=== PATIENT | female | born 1975 | race Caucasian/White ===

== ENCOUNTER → 2018-01-28 11:34 | Outpatient (CLI) | payer OTHER, SELFPAY ==
[2018-01-28 14:10] LABS: Erythrocyte Sedimentation Rate 3 mm/hr (0-20)
[2018-01-28 14:29] LABS: ALB/GLOB Ratio 0.9 RATIO (0.9-2.4); AST(SGOT) 13 U/L (15-37); Alanine Aminotransfer ALT/SGPT 21 U/L (13-56); Albumin, Serum 3.5 g/dL (3.2-5.0); Alkaline Phosphatase 71 U/L (45-117); Anion Gap 7 (5-15); BUN 22 mg/dL (7-18); BUN/Creat Ratio 32.9 RATIO (10-20); CRP < 2.90 mg/L (0.0-3.0); Calcium,Total 8.8 mg/dL (8.5-10.1); Chloride 104 mmol/L (98-107); Creatinine, Serum 0.67 mg/dL (0.55-1.02); EST Glomerular Filtration Rate 103 mL/min (>60); Est Glom Filt Rate - Afr Amer 125 mL/min (>60); Globulin 3.7 g/dL (2.2-4.2); Glucose 68 mg/dL (74-106); Potassium 3.9 mmol/L (3.5-5.1); Protein, Total 7.2 g/dL (6.4-8.2); Sodium Level 139 mmol/L (136-145); Thyroid Stim Hormone (TSH) 0.84 uIU/mL (0.358-3.74)
[2018-01-29 09:23] LABS: PTHIN 25.4 pg/mL (18.4-80.1)
[2018-01-31 20:07] LABS: Lyme IgG P18 Ab Absent (.); Lyme IgG P23 Ab Absent (.); Lyme IgG P28 Ab Absent (.); Lyme IgG P30 Ab Absent (.); Lyme IgG P39 Ab Absent (.); Lyme IgG P41 Ab Present (.); Lyme IgG P45 Ab Absent (.); Lyme IgG P58 Ab Absent (.); Lyme IgG P66 Ab Absent (.); Lyme IgG P93 Ab Absent (.); Lyme IgM P23 Ab Absent (.); Lyme IgM P39 Ab Absent (.); Lyme IgM P41 Ab Absent (.)
[2018-02-01 10:51] LABS: Lyme IgG WB Interpretation Negative (.); Lyme IgM WB Interpretation Negative (.)
== END ==
PROVIDERS: Family Provider Nurse Practitioner Family; PCP Nurse Practitioner Family; Visit Provider Nurse Practitioner Family
DX: M25.50 Pain in unspecified joint (principal); G89.29 Other chronic pain; L74.9 Eccrine sweat disorder, unspecified; M79.1 Myalgia; R53.81 Other malaise; R53.82 Chronic fatigue, unspecified
CPT/HCPCS: 36415; 80053; 82533; 83970; 84443; 85652; 86140; 86617

== ENCOUNTER → 2018-05-06 16:58 | Outpatient (CLI) | payer OTHER, SELFPAY ==
[2018-05-10 09:01] LABS: HPV Reflexed? NOT INDICATED
== END ==
PROVIDERS: Visit Provider Obstetrics & Gynecology
DX: Z12.4 Encounter for screening for malignant neoplasm of cervix (principal)
CPT/HCPCS: 88175; G0145

== ENCOUNTER → 2018-06-10 16:24 | Outpatient (CLI) | payer OTHER, SELFPAY ==
--- NOTE | 2018-06-10 16:27 | BI_ITS ---
MAMMOGRAPHY - BILATERAL SCREENING REASON FOR EXAM: Female, 42 years old. Routine annual screening examination. PERTINENT HISTORY: Grandmother with breast cancer. Remote left excisional breast biopsy and right excisional breast biopsy. TECHNIQUE: Digital bilateral breast jessica (3D mammographic acquisition) in the CC and MLO projections. 2-D mediolateral oblique (MLO) and craniocaudad (CC) views of both breasts were obtained. CAD: Full Field Digital Mammography with Computer Added Detection was performed. COMPARISON: Comparison is made with prior study dated January 29, 2017. FINDINGS: Breast Composition: The breasts are extremely dense, which lowers the sensitivity of mammography. There are no dominant masses or suspicious calcifications. A tissue clip marker is seen in the anterior superior aspect of the left breast. The previously seen microcalcifications are not seen at this time. No other significant abnormalities are identified. BI/SCREENING MAMM (CAD), BILAT IMPRESSION: Stable bilateral screening mammogram. Yearly follow-up mammogram recommended. (A) ASSESSMENT CATEGORY: BIRADS Category 2: Benign. A letter regarding these results will be sent to the patient by the facility within 30 days. Approximately 10% of breast cancers are not detected by mammography. A normal mammogram should not delay biopsy of a clinically suspicious abnormality. [id number] Electronically Signed: Hunter Perez MD at 8:28 EDT Tel [phone], Service support ,
== END ==
PROVIDERS: Family Provider Nurse Practitioner Family; PCP Nurse Practitioner Family; Visit Provider Obstetrics & Gynecology
DX: Z12.31 Encounter for screening mammogram for malignant neoplasm of breast (principal)
CPT/HCPCS: 77063; 77067

== ENCOUNTER → 2019-05-29 | Outpatient (CLI) | payer OTHER, SELFPAY ==
[2019-04-02 12:24] VITALS: BMI 19.6
[2019-05-29 10:28] LABS: Absolute Neutrophil Count 3.6 X10^3/uL (2.0-7.7); Basophil# 0.05 X10^3/uL; Basophil% 0.8 % (0-1); Eosinophil# 0.11 X10^3/uL; Eosinophils% 1.8 % (0-5); Hematocrit 37.6 % (37-47); Hemoglobin 12.1 g/dL (12.0-15.0); Lymphocyte % 30.8 % (19-41); Mean Corp Hgb Conc 32.2 g/dL (32-36); Mean Corpuscular Hgb 30.4 pg (27.0-32.0); Mean Corpuscular Volume 94.5 fL (81-99); Mean Platelet Vol. 11.6 fl (6.2-12.0); Monocyte# 0.54 X10^3/uL; Monocyte% 8.8 % (0-10); NRBC Flagged by Analyzer 0 % (0-5); Neutrophil # 3.55 X10^3/uL (2.7-7.7); Neutrophil % 57.5 % (47-70); Platelet Count 308 K/mm3 (150-450); RBC Distribution Width CV 12.5 % (11.6-14.6); RBC Distribution Width SD 43.2 fl (35.1-43.9); Red Blood Count 3.98 M/mm3 (4.2-5.4); White Blood Count 6.2 K/mm3 (4.4-11.0)
[2019-05-29 11:21] LABS: ALB/GLOB Ratio 0.9 RATIO (0.9-2.4); AST(SGOT) 15 U/L (15-37); Alanine Aminotransfer ALT/SGPT 21 U/L (13-56); Albumin, Serum 3.3 g/dL (3.2-5.0); Alkaline Phosphatase 69 U/L (45-117); Anion Gap 1 (5-15); BUN 15 mg/dL (7-18); BUN/Creat Ratio 19.1 RATIO (10-20); Calcium,Total 8.8 mg/dL (8.5-10.1); Chloride 105 mmol/L (98-107); Creatinine, Serum 0.79 mg/dL (0.55-1.02); EST Glomerular Filtration Rate 85 mL/min (>60); Est Glom Filt Rate - Afr Amer 103 mL/min (>60); Ferritin 12 ng/mL (8-252); Follicle Stimulating Hormone 12.6 mIU/mL; Free T3 2.4 pg/mL (2.18-3.98); Globulin 3.7 g/dL (2.2-4.2); Glucose 72 mg/dL (74-106); Iron 35 ug/dL (50-170); Iron Binding Capacity,Total 336 ug/dL (250-450); LDH 127 U/L (84-246); Luteinizing Hormone 19.5 mIU/mL; PERCENT IRON SATURATION 10.4 % (15.0-55.0); Sodium Level 138 mmol/L (136-145); T4 Free Direct 0.87 ng/dL (0.76-1.46); Thyroid Stim Hormone (TSH) 1.04 uIU/mL (0.358-3.74)
[2019-05-29 12:18] LABS: Vitamin D,25 Hydroxy 51.4 ng/mL (29.95-100.01)
[2019-06-03 13:03] LABS: Adrenocorticotropic Hormone 9.7 pg/mL (7.2-63.3); Estrogen, Total, Serum 270 pg/mL (.)
== END | disposition home or self-care (01) ==
LOC: MTLAB 08:47
PROVIDERS: Family Provider Nurse Practitioner Family; PCP Nurse Practitioner Family; Referring Provider Internal Medicine Endocrinology, Diabetes & Metabolism; Visit Provider Internal Medicine Endocrinology, Diabetes & Metabolism
DX: R61 Generalized hyperhidrosis (principal); R53.83 Other fatigue; E55.9 Vitamin D deficiency, unspecified
CPT/HCPCS: 36415; 80053; 82024; 82306; 82533; 82672; 82728; 83001; 83002; 83540; 83550; 83615; 84439; 84443; 84481; 85025

== ENCOUNTER → 2019-07-02 | Outpatient (CLI) | payer OTHER, SELFPAY ==
[2019-04-02 12:24] VITALS: BMI 19.6
--- NOTE | 2019-07-02 12:14 | BI_ITS ---
MAMMOGRAPHY - BILATERAL SCREENING REASON FOR EXAM: Female, 43 years old. Routine annual screening examination. PERTINENT HISTORY: Grandmother with breast cancer. Aunt with breast cancer. Prior left stereotactic biopsy and right excisional breast biopsy. TECHNIQUE: Digital bilateral breast nazia (3D mammographic acquisition) in the CC and MLO projections. 2-D mediolateral oblique (MLO) and craniocaudad (CC) views of both breasts were obtained. CAD: Full Field Digital Mammography with Computer Added Detection was performed. COMPARISON: Comparison is made with prior study June 10, 2018 and January 29, 2017. FINDINGS: Breast Composition: The breasts are extremely dense, which lowers the sensitivity of mammography. There are no dominant masses or suspicious calcifications. A tissue clip marker is once again seen in the anterior upper lateral aspect of the left breast. No other significant abnormalities are identified. There has been no significant change since the prior study. BI/SCREEN MAMM (CAD) W/NAZIA BILAT IMPRESSION: Stable bilateral screening mammogram. Yearly follow-up mammogram recommended. (A) ASSESSMENT CATEGORY: BIRADS Category 2: Benign. A letter regarding these results will be sent to the patient by the facility within 30 days. Approximately 10% of breast cancers are not detected by mammography. A normal mammogram should not delay biopsy of a clinically suspicious abnormality. [id number] Electronically Signed: Hunter Perez, at 13:49 EDT , Service support ,
== END | disposition home or self-care (01) ==
LOC: OPBI 12:13
PROVIDERS: Family Provider Nurse Practitioner Family; PCP Nurse Practitioner Family; Referring Provider Obstetrics & Gynecology; Visit Provider Obstetrics & Gynecology
DX: Z12.31 Encounter for screening mammogram for malignant neoplasm of breast (principal)
CPT/HCPCS: 77063; 77067

== ENCOUNTER → 2020-07-26 16:22 | Outpatient (CLI) | payer OTHER, SELFPAY ==
[2019-11-20 15:39] VITALS: BMI 19.6
--- NOTE | 2020-07-26 16:23 | BI_ITS ---
MAMMOGRAPHY - BILATERAL SCREENING REASON FOR EXAM: Female, 44 years old. Routine annual screening examination. PERTINENT HISTORY: Grandmother with breast cancer. Aunt with breast cancer. History of prior left stereotactic breast biopsy. TECHNIQUE: Digital bilateral breast nazia (3D mammographic acquisition) in the CC and MLO projections. 2-D mediolateral oblique (MLO) and craniocaudad (CC) views of both breasts were obtained. CAD: Full Field Digital Mammography with Computer Added Detection was performed. COMPARISON: Comparison is made with prior study dated 07/02/2019 and 06/10/2018. FINDINGS: Breast Composition: The breasts are extremely dense, which lowers the sensitivity of mammography. There are no dominant masses or suspicious calcifications. A tissue clip marker is once again seen in the anterior upper lateral aspect of the left breast. No other significant abnormalities are identified. There has been no significant change since the prior study. BI/SCREEN MAMM (CAD) W/NAZIA BILAT IMPRESSION: Stable bilateral screening mammogram. Yearly follow-up mammogram recommended. (A) ASSESSMENT CATEGORY: BIRADS Category 2: Benign. A letter regarding these results will be sent to the patient by the facility within 30 days. Approximately 10% of breast cancers are not detected by mammography. A normal mammogram should not delay biopsy of a clinically suspicious abnormality. [id number] Electronically Signed: Hunter Perez, at 8:08 EST , Service support ,
== END ==
PROVIDERS: PCP Nurse Practitioner Family; Referring Provider Nurse Practitioner Family; Visit Provider Nurse Practitioner Family
DX: Z12.31 Encounter for screening mammogram for malignant neoplasm of breast (principal)
CPT/HCPCS: 77063; 77067

== ENCOUNTER → 2020-12-15 13:26 | Outpatient (CLI) | payer BC, SELFPAY ==
[2019-11-20 15:39] VITALS: BMI 19.6
[2020-12-20 20:07] LABS: HPV Genotype 16, Aptima Negative (Negative)
[2020-12-20 20:31] LABS: HPV APTIMA, High Risk Positive (Negative); HPV Genotype 18,45 Aptima Negative (Negative)
== END ==
PROVIDERS: PCP Nurse Practitioner Family; Visit Provider Student in an Organized Health Care Education/Training Program
DX: Z12.4 Encounter for screening for malignant neoplasm of cervix (principal)
CPT/HCPCS: 87624; 88175; G0145

== ENCOUNTER → 2021-02-28 09:59 | Outpatient (CLI) | payer BC, SELFPAY ==
[2019-11-20 15:39] VITALS: BMI 19.6
--- NOTE | 2021-02-28 10:06 | US_ITS ---
STUDY: THYROID ULTRASOUND REASON FOR EXAM: Female, 45 years old. THYROID NODULE TECHNIQUE: Ultrasound evaluation of the thyroid was performed with real-time and static dwyer-scale imaging. COMPARISON: None. FINDINGS: RIGHT LOBE: The right lobe of the thyroid gland is enlarged and measures 5.2 cm x 2.1 signed by 1.5 cm. There is a homogeneous echotexture. A dominant nodule is in the upper pole measuring 1.5 cm x 1 cm x 0.8 cm. Biopsy is recommended. This also evidence of a solid and cystic nodule in the midpole measuring 8 mm x 7 mm x 4 mm. A similar-appearing nodule in the lower pole measures 6 mm x 5 mm x 4 mm. LEFT LOBE: The left lobe of the thyroid gland is enlarged and measures 5.2 cm x 1.7 cm x 2 cm. There is a homogeneous echotexture. A dominant solid nodule in the lower pole is seen. It measures 2.2 cm x 1.6 x 1.5 cm. Biopsy is recommended. ISTHMUS: The isthmus measures 3 mm. The regional lymph nodes are normal. US/Thyroid IMPRESSION: Enlargement of the thyroid gland with the bilateral nodules. A dominant nodule is seen in the left lobe of the thyroid and measures 2.2 cm x 1.6 cm by 1.5 cm. A biopsy is recommended. Electronically Signed: Hunter Perez MD at 15:28 EDT , Service support ,
[2021-02-28 10:46] LABS: T4 Free Direct 1.11 ng/dL (0.76-1.46); Thyroid Stim Hormone (TSH) 1.21 uIU/mL (0.358-3.74)
== END ==
PROVIDERS: PCP Nurse Practitioner Family; Referring Provider Nurse Practitioner Family; Visit Provider Nurse Practitioner Family
DX: E04.1 Nontoxic single thyroid nodule (principal)
CPT/HCPCS: 36415; 76536; 84439; 84443

== ENCOUNTER → 2021-03-28 09:32 | Outpatient (CLI) | payer BC, SELFPAY ==
[2019-11-20 15:39] VITALS: BMI 19.6
[2021-03-29 16:09] LABS: Thyroid Peroxidase AB < 8 IU/mL (0-34)
[2021-03-30 16:21] LABS: Thyroglobulin Antibody < 1.0 IU/mL (0.0-0.9)
== END ==
PROVIDERS: PCP Nurse Practitioner Family; Referring Provider Nurse Practitioner Family; Visit Provider Nurse Practitioner Family
DX: E04.1 Nontoxic single thyroid nodule (principal)
CPT/HCPCS: 36415; 86376; 86800

== ENCOUNTER → 2021-04-25 08:04 | Outpatient (CLI) | payer BC, SELFPAY ==
[2019-11-20 15:39] VITALS: BMI 19.6
--- NOTE | 2021-04-25 08:07 | NM_ITS ---
CLINICAL: 45-year-old female with reported history of thyroid nodularity. I-123 THYROID UPTAKE and SCAN COMPARISON: Thyroid ultrasound report 02/28/2021 FINDINGS: The patient was administered a 324 uCi I-123 capsule by mouth. The 4-hour I-123 radioactive iodine thyroidal uptake was calculated to be 29.8 % (normal 5 to 25 %). The 24-hour I-123 radioactive iodine thyroidal uptake was calculated to be 46.6 % (normal 5 to 40 %). The I-123 thyroid scan demonstrates homogeneous radiopharmaceutical concentration throughout both lobes of a U -shaped thyroid gland. There are no colloidal parenchymal hypofunctioning-cold nodules noted in either lobe of the thyroid gland. NM/Thyroid Uptake Single or Mult IMPRESSION: 1. ABNORMAL, ELEVATED 4- and 24-hour I-123 radioactive iodine thyroidal uptakes. 2. The I-123 thyroid scan in conjunction with the calculated iodine uptake values is most consistent with the presence of a diffuse toxic goiter. If not previously obtained correlation with in-vitro thyroid function studies is recommended. 3. Meticulous attention paid to the right-left thyroid colloid demonstrate no evidence of hypofunctioning-cold nodules as described above. Electronically Signed: Toni Andrade DO at 21:58 EDT Tel , Service support ,
== END ==
LOC: NM 08:05
PROVIDERS: PCP Nurse Practitioner Family; Referring Provider Nurse Practitioner Family; Visit Provider Nurse Practitioner Family
DX: E04.1 Nontoxic single thyroid nodule (principal)
CPT/HCPCS: 78012; A9516

== ENCOUNTER → 2021-05-23 18:21 | Outpatient (CLI) | payer BC, SELFPAY ==
--- NOTE | 2021-05-23 13:00 | ASPS_PTH ---
PATIENT: LIDIA AGGARAWL [facility] U#:[id number] AGE/SX: 49/F ROOM: RE05/23/[address]: Dr. Milind Cloud MD : 1975 BED: DIS: SPEC #: [id number] RECD: 05/24/21 07:55 STATUS: ELIGIO JAYY #: [id number] RYLAN: 05/23/21 13:[address]: Milind Cloud DEPT: CYTOLOGY RECD BY: Rubina Friedman ENTERED: 05/24/21 07:56 SP TYPE: ASPIRATION OTHR DR: Toni Barreto, DIRECTOR OF PRIMARY CARE-C Tissues: Thyroid gland, NOS Procedures: Special Stain Group II Cytology Other HEADER OPERATION: Ultrasound guided fine needle aspiration of left thyroid PRE-OP DIAGNOSIS: Thyroid nodule, left TISSUE SUBMITTED: FNA left thyroid DIAGNOSIS CYTOLOGY Fine needle aspiration, left thyroid (smears): -Adequate for evaluation -Negative, consistent with benign follicular nodule with cystic change AM:mary 05/24/21 COMMENT Immediate cytologic evaluation to determine adequacy is not applicable. CYTOLOGY STUDY Slides are reviewed. CYTOLOGY GROSS Received are 12 smears labeled with the patient's name and designated per the requisition as left thyroid Submitted for staining. /AM:mary 05/24/21 TC:5 CPT: 87286
== END ==
PROVIDERS: PCP Nurse Practitioner Family; Visit Provider Surgery
DX: E04.1 Nontoxic single thyroid nodule (principal)
CPT/HCPCS: 88161; 88313

== ENCOUNTER → 2021-07-18 08:10 | Outpatient (CLI) | payer BC, SELFPAY ==
[2021-07-18 09:45] LABS: Absolute Lymphocyte Count 1.79 X10^3/uL (0.83-4.51); Absolute Neutrophil Count 5.8 X10^3/uL (2.0-7.7); Basophil# 0.09 X10^3/uL; Basophil% 1.1 % (0-1); Eosinophil# 0.23 X10^3/uL; Eosinophils% 2.7 % (0-5); Hematocrit 41.8 % (37-47); Hemoglobin 13.8 g/dL (12.0-15.0); Lymphocyte # 1.79 X10^3/ul (0.83-4.51); Lymphocyte % 21.1 % (19-41); Mean Corpuscular Volume 93.9 fL (81-99); Mean Platelet Vol. 10.8 fl (6.2-12.0); Monocyte# 0.55 X10^3/uL; Monocyte% 6.5 % (0-10); NRBC Flagged by Analyzer 0 % (0-5); Neutrophil # 5.82 X10^3/uL (2.7-7.7); Neutrophil % 68.4 % (47-70); Platelet Count 373 K/mm3 (150-450); RBC Distribution Width CV 12.4 % (11.6-14.6); RBC Distribution Width SD 42.6 fl (35.1-43.9); Red Blood Count 4.45 M/mm3 (4.2-5.4); White Blood Count 8.5 K/mm3 (4.4-11.0)
[2021-07-18 10:08] LABS: Vitamin D,25 Hydroxy 90.6 ng/mL
[2021-07-18 10:09] LABS: Cholesterol 170 mg/dL (200); High Density Lipoprotein 48 mg/dL; Iron 78 ug/dL (50-170); Triglycerides 115 mg/dL; Very Low Density Lipoprotein 23 mg/dL (5-40)
== END ==
PROVIDERS: PCP Nurse Practitioner Family; Referring Provider Nurse Practitioner Family; Visit Provider Nurse Practitioner Family
DX: D64.9 Anemia, unspecified (principal); E55.9 Vitamin D deficiency, unspecified; Z13.220 Encounter for screening for lipoid disorders
CPT/HCPCS: 36415; 80061; 82306; 83540; 85025

== ENCOUNTER → 2021-08-08 12:36 | Outpatient (CLI) | payer BC, SELFPAY ==
--- NOTE | 2021-08-08 12:49 | BI_ITS ---
MAMMOGRAPHY - BILATERAL SCREENING 3-D TOMOSYNTHESIS REASON FOR EXAM: Female, 45 years old. SCREENING PERTINENT HISTORY: Grandmother, and aunt with breast cancer TECHNIQUE: 2-D mammograms and 3-D Tomosynthesis of the breast (s) were performed. CAD was performed. COMPARISON: 07/26/2020 FINDINGS: The breast composition is extremely dense tissue Scattered benign calcifications are seen. No dense spiculated masses or suspicious microcalcifications are identified. No architectural distortion is identified. There is no skin thickening or retraction. There has been no significant change since the prior study. BI/SCRN MAMM (CAD)W/NAZIA BILAT IMPRESSION: No mammographic signs of malignancy. Routine yearly mammograms recommended. ASSESSMENT CATEGORY: BIRADS Category 2: Benign. A letter regarding these results will be sent to the patient by the facility within 30 days. FOLLOW UP RECOMMENDATION: Yearly follow up mammogram recommended. (A) Approximately 10% of breast cancers are not detected by mammography. A normal mammogram should not delay biopsy of a clinically suspicious abnormality. Electronically Signed: Puneet Arshad MD at 14:22 EST , Service support ,
== END ==
PROVIDERS: PCP Nurse Practitioner Family; Referring Provider Nurse Practitioner Family; Visit Provider Nurse Practitioner Family
DX: Z12.31 Encounter for screening mammogram for malignant neoplasm of breast (principal)
CPT/HCPCS: 77063; 77067

== ENCOUNTER → 2021-09-06 20:59 | Outpatient (CLI) | payer BC, SELFPAY | PROVIDERS: PCP Nurse Practitioner Family; Referring Provider Physician Assistant; Visit Provider Physician Assistant | DX: J02.9 Acute pharyngitis, unspecified (principal) | CPT/HCPCS: 87070 ==

== ENCOUNTER → 2022-08-14 | Outpatient (CLI) | payer OTHER, SELFPAY ==
--- NOTE | 2022-08-14 16:49 | BI_ITS ---
MAMMOGRAPHY - BILATERAL SCREENING REASON FOR EXAM: Female, 46 years old. Routine annual screening examination. PERTINENT HISTORY: Grandmother with breast cancer. Aunt with breast cancer. Prior bilateral excisional breast biopsies and left stereotactic breast biopsy. TECHNIQUE: Digital bilateral breast nzaia (3D mammographic acquisition) in the CC and MLO projections. 2-D mediolateral oblique (MLO) and craniocaudad (CC) views of both breasts were obtained. CAD: Full Field Digital Mammography with Computer Added Detection was performed. COMPARISON: Comparison is made with prior study dated 08/08/2021 and 07/26/2020. FINDINGS: Breast Composition: The breasts are extremely dense, which lowers the sensitivity of mammography. There are no dominant masses or suspicious calcifications. No other significant abnormalities are identified. There has been no significant change since the prior study. BI/SCRN MAMM (CAD)W/NAZIA BILAT IMPRESSION: Stable bilateral screening mammogram. Yearly follow-up mammogram recommended. (A) ASSESSMENT CATEGORY: BIRADS Category 1: Negative. A letter regarding these results will be sent to the patient by the facility within 30 days. Approximately 10% of breast cancers are not detected by mammography. A normal mammogram should not delay biopsy of a clinically suspicious abnormality. [id number] Electronically Signed: Hunter Perez MD at 8:18 EST ,
== END | disposition home or self-care (01) ==
LOC: OPBI 08-15 06:52
PROVIDERS: PCP Nurse Practitioner Family; Visit Provider Student in an Organized Health Care Education/Training Program
DX: Z12.31 Encounter for screening mammogram for malignant neoplasm of breast (principal)
CPT/HCPCS: 77063; 77067

== ENCOUNTER → 2023-05-29 | Outpatient (CLI) | payer OTHER, SELFPAY ==
[2023-06-04 07:08] LABS: HPV APTIMA, High Risk Positive (Negative); HPV Genotype 16, Aptima Negative (Negative); HPV Genotype 18,45 Aptima Negative (Negative)
== END | disposition home or self-care (01) ==
LOC: WOBLAB 10:55
PROVIDERS: PCP Nurse Practitioner Family; Visit Provider Student in an Organized Health Care Education/Training Program
DX: Z12.4 Encounter for screening for malignant neoplasm of cervix (principal)
CPT/HCPCS: 87624; 88175; G0145

== ENCOUNTER → 2023-09-24 | Outpatient (CLI) | payer OTHER, SELFPAY ==
--- NOTE | 2023-09-24 16:29 | BI_ITS ---
MAMMOGRAPHY - BILATERAL SCREENING REASON FOR EXAM: Female, 47 years old. Routine annual screening examination. PERTINENT HISTORY: Grandmothers with breast cancer. Prior bilateral excisional breast biopsies and left stereotactic breast biopsy. TECHNIQUE: Digital bilateral breast nazia (3D mammographic acquisition) in the CC and MLO projections. 2-D mediolateral oblique (MLO) and craniocaudad (CC) views of both breasts were obtained. CAD: Full Field Digital Mammography with Computer Added Detection was performed. COMPARISON: Comparison is made with prior study dated August 14, 2022 and August 08, 2021. FINDINGS: Breast Composition: The breasts are extremely dense, which lowers the sensitivity of mammography. Stable 8.5 mm x 13.4 mm fat-containing nodular density in the superior retroareolar region of the right breast. A tissue clip marker is seen in the upper deep central portion of the left breast. No other significant abnormalities are identified. There has been no significant change since the prior study. BI/SCRN MAMM (CAD)W/NAZIA BILAT IMPRESSION: Stable bilateral screening mammogram. Yearly follow-up mammogram recommended. (A) ASSESSMENT CATEGORY: BIRADS Category 2: Benign. A letter regarding these results will be sent to the patient by the facility within 30 days. Approximately 10% of breast cancers are not detected by mammography. A normal mammogram should not delay biopsy of a clinically suspicious abnormality. [id number] Electronically Signed: Hunter Perez MD at 9:20 EST ,
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
== END | disposition home or self-care (01) ==
LOC: OPBI 09-25 07:44
PROVIDERS: PCP Nurse Practitioner Family; Referring Provider Nurse Practitioner Family; Visit Provider Nurse Practitioner Family
DX: Z12.31 Encounter for screening mammogram for malignant neoplasm of breast (principal)
CPT/HCPCS: 77063; 77067

== ENCOUNTER → 2024-08-18 | Outpatient (CLI) | payer OTHER, SELFPAY ==
[2024-08-31 09:22] LABS: HPV APTIMA, High Risk Positive (Negative); HPV Genotype 16, Aptima Negative (Negative); HPV Genotype 18,45 Aptima Negative (Negative)
== END | disposition home or self-care (01) ==
LOC: LABSPEC 16:34
PROVIDERS: PCP Nurse Practitioner Family; Referring Provider Nurse Practitioner Women's Health; Visit Provider Nurse Practitioner Women's Health
DX: Z12.4 Encounter for screening for malignant neoplasm of cervix (principal)
CPT/HCPCS: 87624; 88175; G0145

== ENCOUNTER → 2024-10-19 | Outpatient (CLI) | payer OTHER, SELFPAY ==
--- NOTE | 2024-10-19 | IMM_PTH ---
PATIENT: LIDIA AGGARWAL LOC: [facility] U#:[id number] AGE/SX: 48/F ROOM: RE10/19/[address]: Dr. Mery Munguia DO : 1975 BED: DIS: 10/19/2024 SPEC #: [id number] RECD: 10/21/24 12:00 STATUS: ELIGIO JAYY #: [id number] RYLAN: 10/19/24 00:[address]: Mery Munguia DEPT: IMMUNOHISTOCHEMISTRY RECD BY: Franklin Miller ENTERED: 10/21/24 12:00 SP TYPE: IMMUNO OTHR DR: Toni Barreto, HAZMAT TECHNICIAN-C Tissues: A - Uterine cervix, NOS Procedures: p16 (initial) KI-67 (add) PHYSICIAN & INSTITUTION [place] [id number] SPECIMEN INFORMATION: Tissue Source: A- 12o'clock Clinical Info: HPV+ Specimen Number: [id number] CPT code: 18539,27087 METHODOLOGY: Deparaffinized sections of prefer/formalin-fixed tissue or PAP/DQ stained slides are incubated with monoclonal/polyclonal antibodies/oligonucleotide probes. Localization is made via biotin free immunoperoxidase method. Appropriate controls are performed and reacted as expected. Results on target cell population are indicated in the following table: RESULTS: ANTIBODY / CLONE RESULT Block A P16 (E6H4) positive, focal patchy staining Ki-67 (30-9) positive, low These tests were developed and their performance characteristics determined by [facility]. They may not have been cleared or approved by the U.S. Food and Drug Administration. The FDA has determined that such clearance or approval is not necessary. The above immunohistochemical/dualISH markers are ordered and reviewed by the Pathologist. INTERPRETATION: A. Cervix, 12o'clock, biopsy: Focal changes consistent with HPV cytopathic effects. . mr 10/22/2024
--- NOTE | 2024-10-19 | CER_PTH ---
PATIENT: LIDIA AGGARWAL LOC: [facility]#:[id number] AGE/SX: 48/F ROOM: RE10/19/[address]: Dr. Mery Munguia DO : 1975 BED: DIS: 10/19/2024 SPEC #: [id number] RECD: 10/19/24 16:59 STATUS: ELIGIO GOODMANDelmi #: [id number] RYLAN: 10/19/24 00:[address]: Mery Munguia DEPT: SURGICAL PATHOLOGY RECD BY: Leonides Shepherd ENTERED: 10/20/24 08:55 SP TYPE: CERV OTHR DR: Toni Barreto, TRAINING PROFESSIONAL-C Tissues: A - Uterine cervix, NOS B - Endocervical Procedures: Surgery Specimen Level IV HEADER OPERATION: Colposcopy PRE-OP DIAGNOSIS: HPV+ TISSUE SUBMITTED: A- 12o'clock, B- Endocervical curettings MICROSCOPIC DIAGNOSIS A. Cervix, 12o'clock, biopsy: Focal changes consistent with HPV cytopathic effects. Acute and chronic inflammation and squamous metaplasia. See comment. B. Endocervical curettings: Scant fragments of benign ecto- and endocervical epithelium, negative for dysplasia. SJ. 10/21/2024 COMMENT A. Immunohistochemistry ([id number]) for surrogate HPV marker (p16) supports the above diagnosis. MICROSCOPIC DESCRIPTION Slides are reviewed. GROSS DESCRIPTION A. Received in fixative is one container labeled with the patient's name and designated 12o'clock. The specimen consists of one irregular fragment of light mcclendon soft tissue that measures 0.3 x 0.3 x 0.1 cm. The specimen is totally submitted in one cassette. B. Received in fixative is a metallic brush with adherent minute fragments of mcclendon-red tissue and labeled with the patient's name and and designated per the requisition as ECC BRUSH. The material is dislodged from the brush and submitted for cell block preparation in one cassette. ALEX. 10/20/2024 TC:5 CPT:77047d6
== END | disposition home or self-care (01) ==
LOC: LABSPEC 16:10
PROVIDERS: PCP Nurse Practitioner Family; Referring Provider Obstetrics & Gynecology; Visit Provider Obstetrics & Gynecology
DX: N87.9 Dysplasia of cervix uteri, unspecified (principal)
CPT/HCPCS: 88305; 88341; 88342

== ENCOUNTER → 2024-11-18 | Outpatient (CLI) | payer OTHER, SELFPAY ==
--- NOTE | 2024-11-18 09:45 | BI_ITS ---
PROCEDURE: SCRN MAMM (CAD)W/NAZIA BILAT REASON FOR EXAM: F, Age 49 y/o, presents for annual screening mammogram. Family history of breast cancer in her maternal grandmother, paternal grandmother, maternal aunt and paternal aunt. TECHNIQUE: Bilateral screening digital breast tomosynthesis with 2D and 3D images. Computer aided detection. COMPARISON: 09/24/2023, 08/14/2022 FINDINGS: The breasts are extremely dense which lowers the sensitivity of mammography. The mammogram demonstrates that the patient has dense breasts. Supplemental screening with whole breast ultrasound or MRI may be considered for further evaluation. No suspicious masses, areas of developing architectural distortion, or suspicious calcifications. BI/SCRN MAMM (CAD)W/NAZIA BILAT IMPRESSION: There is no mammographic evidence of malignancy. BI-RADS 1: NEGATIVE. RECOMMEND ANNUAL MAMMOGRAPHIC SCREENING. Follow-up code: Routine Follow-up The patient will be notified of the results by letter. Reading Location: [id number]
== END | disposition home or self-care (01) ==
LOC: OPBI 09:36
PROVIDERS: PCP Nurse Practitioner Family; Referring Provider Nurse Practitioner Women's Health; Visit Provider Nurse Practitioner Women's Health
DX: Z12.31 Encounter for screening mammogram for malignant neoplasm of breast (principal)
CPT/HCPCS: 77063; 77067

== ENCOUNTER 2024-11-23 06:50 | Day surgery (SDC) | payer OTHER, SELFPAY ==
[2024-11-23] VITALS (7 sets, daily range): BP systolic 88–107; BP diastolic 53–66; PULSE 51–60; RESP 16; TEMP 36.1–36.6; O2SAT 97–100; BMI 20.2
--- NOTE | 2024-11-23 07:06 | PCM.PRE.AN2 ---
ASA Classification* ASA Classification ASA Classification: 2 Assessment & Plan Anesthesia* Anesthesia Assessment Anesthesia Assessment: Discussed sedation and/or anesthesia options, risks, benefits, and alternatives with patient/parents/legal guardian/POA. Questions invited. The patient/parents/legal guardian/POA seems to understand and agrees to proceed with anesthesia plan. Reviewed the physical assessment, medical history, allergy history and patient home medications list prior to surgery/procedure/anesthetic and documented any changes. Performed airway and anesthesia risk assessments. Anesthesia Type Anesthesia Type: MAC Anesthesia Focused Assessment* Airway Assessment Mouth opens: >3 cm Mallampati Score: II Focused Labs Anesthesia Preop lab: CBC WBC 8.5 K/mm3 (4.4-11.0) 07/18/21 08:14 07/18/21 RBC 4.45 M/mm3 (4.2-5.4) 07/18/21 08:14 07/18/21 Hgb 13.8 g/dL (12.0-15.0) 07/18/21 08:14 07/18/21 Hct 41.8 % (37-47) 07/18/21 08:14 07/18/21 Plt Count 373 K/mm3 (150-450) 07/18/21 08:14 07/18/21 CHEMISTRY Potassium 4.0 mmol/L (3.5-5.1) 05/29/19 09:03 05/29/19 Sodium 138 mmol/L (136-145) 05/29/19 09:03 05/29/19 BUN 15 mg/dL (7-18) 05/29/19 09:03 05/29/19 Creatinine 0.79 mg/dL (0.55-1.02) 05/29/19 09:03 05/29/19 Glucose 72 mg/dL (74-106) L 05/29/19 09:03 05/29/19 TSH 1.21 uIU/mL (0.358-3.74) 02/28/21 08:33 02/28/21 COAG Urine Test Pending 11/23/24 07:00 11/23/24 Pre-Assessment Diagnosis/Proposed Procedure Planned Operative Procedure(s): cscope Anesthesia History Anesthesia History - security ambassador: Anesthesia History - security ambassador Hx Hospitalization No 11/19/24 12:37 Any Problems With Anesthesia No 11/19/24 12:37 Cholinesterase deficiency No 11/19/24 12:37 You/Your Family Experience No 11/19/24 12:37 fever (hyperthermia) with Relationship Recent Exposure to Contagious Disease Does patient have nerve No 11/19/24 12:37 stimulator Patient instructed to have device shut off --Does patient have Pacemaker or ICD? When Was Last Pacemaker Check QUESTION #4 FULL TEXT: You/Your Family Experience fever (hyperthermia) with Anesthesia Last Oral Intake Last Oral intake: Last Oral Intake NPO since Meds taken in AM with sips of water? Meds patient instructed to take am of surgery PONV PONV - security ambassador: PONV - security ambassador Female Yes 11/19/24 12:37 HX of Motion Sickness No 11/19/24 12:37 HX of N/V After Surgery No 11/19/24 12:37 Non-Smoker Yes 11/19/24 12:37 Duration of Surgery greater No 11/19/24 12:37 than 60 minutes Number of Risk Factors 2 11/19/24 12:37 PONV Score Moderate Risk 11/19/24 12:37 Height & Weight Height & Weight: Anesthesia: Height & Weight Height 5 ft 3 in 10/19/24 13:48 Respiratory Assessment Respiratory Assessment - security ambassador: Respiratory Tract Infection Hx - security ambassador Hx Respiratory Tract Infection No 11/19/24 12:37 STOP Sleep Apnea STOP Sleep Apnea - security ambassador: STOP Sleep Apnea - security ambassador Hx Hypertension No 11/19/24 12:37 Hx Sleep Apnea No 11/19/24 12:37 CPAP BIPAP Do you snore loudly (louder No 11/19/24 12:37 than talking or can be heard Do you often feel tired/ No 11/19/24 12:37 fatigued/ sleepy during daytime? Has anyone observed you stop No 11/19/24 12:37 breathing during sleep? STOP Results Negative 11/19/24 12:37 QUESTION #5 FULL TEXT : Do you snore loudly (louder than talking or can be heard through closed doors)? Tobacco Use History Tobacco Use History - security ambassador: Tobacco Use History - security ambassador Tobacco Use Smoking Status Former smoker 11/19/24 12:37 Hx Tobacco Use No 11/19/24 12:37 Years Smoking Packs Smoked per Day Smoking Cessation Date was Yes - quit smoking within 15 11/19/24 12:37 within the last 15 years years Hx Smoking Cessation Date 09/16/12 11/19/24 12:37 Hx Smoking Cessation Counseling Hematologic Medial History Hematologic Hx - security ambassador: Hematologic Medical Hx - jewelry appraiser Hx of Blood Transfusion No 11/19/24 12:37 Hx of Transfusion in last 3 No 11/19/24 12:37 Months Date of Last Transfusion (if within last 3 months) Ever experience any problems No 11/19/24 12:37 with transfusion(s)? Specify any problems Hx of Preganancy in last 3 N/A 11/19/24 12:37 Months Nurse Filling Out Transfusion NBUCHER 11/19/24 12:37 & Questions: Date: 11/19/24 11/19/24 12:37 Time: 12:38 11/19/24 12:37 Patient unable to answer at this time (ie. confused, unrespo /Reproduction History /Reproductive History - security ambassador: /Reproductive Hx- security ambassador Hx Now No 11/19/24 12:37 Gestational Age (in weeks): EDC: Hx Hx Para Hx Section SAB No 11/19/24 12:37 PFSH Medical History Wears glasses MRSA infection Anxiety Restless legs Migraine headache Former smoker Breast density Family history of breast cancer Toxic diffuse goiter GERD (gastroesophageal reflux disease) Anemia Thyroid nodule Hyperhidrosis Hypoglycemia Fibrocystic disease of breast Elevated cortisol level Depression with anxiety Chronic joint pain Back pain Neck pain Severe headache Hay fever Home Medications ?Medication ?Instructions ?Recorded ?Last Taken ?Type sertraline 100 mg tablet 100 mg PO DAILY 07/06/14 07/05/14 21:00 History cholecalciferol (vitamin D3) 25 25 mcg PO DAILY 10/19/19 Unknown History mcg (1,000 unit) capsule ferrous sulfate 325 mg (65 mg 325 mg PO DAILY 05/21/24 08/01/24 History iron) tablet (Feosol) cyanocobalamin (vitamin B-12) 5,000 mcg PO QDAY 08/18/24 Unknown History 5,000 mcg capsule sodium sul 1.479 gram-potas See Rx Instructions PO PER PKG DIR 09/01/24 Unknown Rx 0.188 gram-magnes sul 0.225 gram colonoscopy prep #24 tabs tablet (Sutab) Allergy/AdvReac Type Severity Reaction Status Date / Time No Known Allergies Allergy Verified 11/19/24 12:35 Family History Grandmother Breast cancer Maternal Father Heart disease Sister Non-Hodgkin lymphoma Myocardial infarction, Onset Age: 41 Grandmother Breast cancer Paternal Aunt Breast cancer Paternal Aunt Breast cancer Maternal Surgical History H/O midurethral sling procedure History of breast biopsy Social History household members: spouse current occupational status: employed current occupation: [employer] Worker of [employer] Smoking Status: Former smoker alcohol intake: current alcohol intake frequency: holidays/special occasions only substance use type: does not use seatbelt use: always do you feel safe at home: Yes additional social history: - Dale- QC Review of Systems (Anesthesia) ROS Narrative System reviewed and no additional complaints, except as documented.
--- NOTE | 2024-11-23 07:17 | H&P.OPEN ---
[facility] - General General Date of Service: 11/23/24 HPI Narrative LIDIA AGGARWAL, is a 49 F who presents for a screening colonoscopy. Patient never had previous colonoscopy. Patient denies any family history of colon cancer, mom did have larger polyps call back in 2 years unsure of the exact size. Patient has bowel movements daily denies any blood. Patient denies any chronic abdominal pain/nausea/vomiting/reflux. [facility] Medical History Wears glasses MRSA infection Anxiety Restless legs Migraine headache Former smoker Breast density Family history of breast cancer Toxic diffuse goiter GERD (gastroesophageal reflux disease) Anemia Thyroid nodule Hyperhidrosis Hypoglycemia Fibrocystic disease of breast Elevated cortisol level Depression with anxiety Chronic joint pain Back pain Neck pain Severe headache Hay fever Home Medications ?Medication ?Instructions ?Recorded ?Last Taken ?Type sertraline 100 mg tablet 100 mg PO DAILY 07/06/14 07/05/14 21:00 History cholecalciferol (vitamin D3) 25 25 mcg PO DAILY 10/19/19 Unknown History mcg (1,000 unit) capsule ferrous sulfate 325 mg (65 mg 325 mg PO DAILY 05/21/24 11/16/24 History iron) tablet (Feosol) cyanocobalamin (vitamin B-12) 5,000 mcg PO QDAY 08/18/24 Unknown History 5,000 mcg capsule sodium sul 1.479 gram-potas ch See Rx Instructions PO PER PKG DIR 09/01/24 Unknown Rx 0.188 gram-magnes sul 0.225 gram colonoscopy prep #24 tabs tablet (Sutab) Allergy/AdvReac Type Severity Reaction Status Date / Time No Known Allergies Allergy Verified 11/23/24 07:14 Family History Grandmother Breast cancer Maternal Father Heart disease Sister Non-Hodgkin lymphoma Myocardial infarction, Onset Age: 41 Grandmother Breast cancer Paternal Aunt Breast cancer Paternal Aunt Breast cancer Maternal Surgical History H/O midurethral sling procedure History of breast biopsy Social History household members: spouse current occupational status: employed current occupation: [employer] Smoking Status: Former smoker alcohol intake: current alcohol intake frequency: holidays/special occasions only substance use type: does not use seatbelt use: always do you feel safe at home: Yes additional social history: - Dale- GARCÍA Past Medical/Surgical History Planned Operation Planned Operative Procedure(s): cscope Previous Hospitalizations/Surgeries HX Hospitalizations: No Any Problems With Anesthesia: No You/Your Family Experience Fever (Hyperthermia) With Anes: No Cholinesterase deficiency: No Cardiovascular Hx of Irregular Heartbeat and/or Afib: No Hx Heart Attack: No Hx Congestive Heart Failure: No Hx Hypertension: No Hx Pacemaker: No Respiratory Hx Chronic Obstructive Pulmonary Disease (COPD): No Hx Asthma: No Hx Emphysema: No Hx Sleep Apnea: No Hx Respiratory Tract Infection/Cold (presently): No Do You Snore Loudly (louder than talking or can be heard): No Do You Often Feel Tired/ Fatigued/ Sleepy Dring Daytime?: No Has Anyone Observed You Stop Breathing During Sleep?: No Result (for STOP score): Negative Smoking Status: Former smoker Gastrointestinal Hx Ulcer: No Neurological Hx Seizures: No Hx Multiple Sclerosis: No Hx Parkinson's Disease: No Hx Head/Neck Injury: No Hx Headaches: No Hx Back Injury/Pain: No Does patient have nerve stimulator: No Reproduction : No Psycho/Social Hx Anxiety: No Hx Depression: Yes Allergies No Known Allergies Allergy (Verified 11/23/24 07:14) Discharge Is Pt Admitted From a Shelter, or a Care Home: No After D/C, Where Do you Plan to Go: Return Home Physical Exam Const alert, oriented x3 and no apparent distress HEENT normocephalic and head/scalp atraumatic Resp normal respiratory effort Cardio regular rate GI soft to palpation and non-tender; Negative for non-distended Palpation: Negative for guarding Extremity no clubbing, cyanosis or edema Skin no rashes or lesions noted Neuro CN's II-XII intact bilaterally Psych mental status grossly normal Assessment & Plan Assessment/Plan (1) Encounter for screening for malignant neoplasm of colon: PLAN: Plan To discussed with patient and her mom that if her mom's polyps were greater than a centimeter patient would be at increased risk and would get screenings every 5 years. Surgery Risks - Colonoscopy I discussed with the patient the risks of the procedure: Yes Risks Include but are not Limited To: Risks include but are not limited to: Bleeding, perforation requiring further surgery, inability to complete colonoscopy requiring barium enema.
[2024-11-23 07:29] LABS: Internal QC Validated? YES +Cl - CLEAR BKGD; Pregnancy, Urine Negative Negative
--- NOTE | 2024-11-23 08:35 | OP.COLON_ITS ---
Patient Name: Danitza Hearn Procedure Date: 11/23/2024 8:07 AM Date of : 1975 Age: 49 Procedure: Colonoscopy Indications: Screening for colorectal malignant neoplasm Providers: Jigna Velasco MD Referring MD: Toni Barreto Medicines: Monitored Anesthesia Care Patient Profile: This is a 49 year old female. Last Colonoscopy: none. The patient's first colonoscopy is today. Complications: No immediate complications. Procedure: Pre-Anesthesia Assessment: - Prior to the procedure, a History and Physical was performed, and patient medications and allergies were reviewed. The patient's tolerance of previous anesthesia was also reviewed. The risks and benefits of the procedure and the sedation options and risks were discussed with the patient. All questions were answered, and informed consent was obtained. Prior Anticoagulants: The patient has taken no anticoagulant or antiplatelet agents. ASA Grade Assessment: Per anesthesia. After reviewing the risks and benefits, the patient was deemed in satisfactory condition to undergo the procedure. After I obtained informed consent, the scope was passed under direct vision. Throughout the procedure, the patient's blood pressure, pulse, and oxygen saturations were monitored continuously. The pediatric colonoscope was introduced through the anus and advanced to the cecum, identified by the appendiceal orifice, ileocecal valve and palpation. The colonoscopy was performed without difficulty. The patient tolerated the procedure well. The quality of the bowel preparation was good. Scope In: 8:12:39 AM Scope Withdrawal Time 0 hours 8 minutes 9 seconds Scope Out: 8:29:32 AM Total Procedure Duration Time 0 hours 16 minutes 53 seconds Findings: The perianal and digital rectal examinations were normal. The entire examined colon appeared normal on direct and retroflexion views. Impression: - The entire examined colon is normal on direct and retroflexion views. - No specimens collected. Recommendation: - Discharge patient to home. - Resume previous diet. - Continue present medications. - Repeat colonoscopy in 10 years for screening purposes. Procedure Code(s): --- Professional --- G0121, PT, Colorectal cancer screening; colonoscopy on individual not meeting criteria for high risk Diagnosis Code(s): --- Professional --- Z12.11, Encounter for screening for malignant neoplasm of colon CPT copyright 2021 [employer]. All rights reserved. The codes documented in this report are preliminary and upon timber sizer operator review may be revised to meet current compliance requirements. MD Jigna Laguerre MD 11/23/2024 8:35:01 AM This report has been signed electronically. Number of Addenda: 0 Note Initiated On: 11/23/2024 8:07 AM
--- NOTE | 2024-11-23 08:36 | OP.CCLET_ITS ---
11/23/2024 Toni Barreto Re : Colonoscopy procedure for Danitza Hearn Dear Mary Lou This procedure was performed on Saturday, November 23, 2024. My impressions and recommendations are as follows: Impressions : - The entire examined colon is normal on direct and retroflexion views. - No specimens collected. Recommendations : - Discharge patient to home. - Resume previous diet. - Continue present medications. - Repeat colonoscopy in 10 years for screening purposes. My findings are described in the full procedure note, which is enclosed. If I can be of further assistance, please feel free to contact me at Doctor phone number(s): , Work: . Sincerely, MD Jigna Laguerre MD 11/23/2024 8:35:01 AM This report has been signed electronically.
--- NOTE | 2024-11-23 08:37 | PCM.POST.ANE ---
Anesthesia: Postop Eval I Current Vital Signs Temperature: 97.8 F Pulse Rate: 56 Blood Pressure: 88/53 Respiratory Rate: 16 Pulse Ox: 97 Oxygen Delivery Method: Room Air Assessment Airway patent: Yes Spontaneous unlabored respirations: Yes Mental status: Awake nausea: No Vomiting: No Anesthesia Complication: No Fluid Hydration Crystalloid volume administer (ml): 10 Total IV fluid infused: 10 Progress Note Anesthesia document: Postop Eval 1 completed: Yes
--- NOTE | 2024-11-23 09:07 | POSTOPAN2_ITS ---
Anesthesia Postop Eval I Sum Postop Eval Completion status Anesthesia document: Postop Eval 1 completed: Yes Anesthesia Postop Eval I Summary Anesthesia Postop Eval I Summary: Anesthesia Postop Eval I: Assessment Summary Airway patent Yes 11/23/24 08:38 [email or web address] Spontaneous unlabored Yes 11/23/24 08:38 POLITICAL [email or web address] respirations Mental status Awake 11/23/24 08:38 POLITICAL [email or web address] nausea No 11/23/24 08:38 POLITICAL [email or web address] Vomiting No 11/23/24 08:38 POLITICAL [email or web address] Anesthesia Postop Eval I: Fluid Summary Crystalloid volume administer 10 11/23/24 08:38 POLITICAL [email or web address] (ml) Colloids volume administered ( ml) Blood Product volume administered (ml) Total IV fluid infused 10 11/23/24 08:38 POLITICAL [email or web address] Anesthesia Postop Eval I: Summary Notes Anesthesia Complication No 11/23/24 08:38 POLITICAL [email or web address] Anesthesia Complication Comment: Post-operative progress note Anesthesia: Postop Eval II Evaluation Mental status: Awake Pain Level: 0 nausea: No Vomiting: No
--- NOTE | 2024-11-23 09:07 | PCM.POSTANE2 ---
Anesthesia Postop Eval I Sum Postop Eval Completion status Anesthesia document: Postop Eval 1 completed: Yes Anesthesia Postop Eval I Summary Anesthesia Postop Eval I Summary: Anesthesia Postop Eval I: Assessment Summary Airway patent Yes 11/23/24 08:38 [email or web address] Spontaneous unlabored Yes 11/23/24 08:38 [email or web address] respirations Mental status Awake 11/23/24 08:38 [email or web address] nausea No 11/23/24 08:38 [email or web address] Vomiting No 11/23/24 08:38 [email or web address] Anesthesia Postop Eval I: Fluid Summary Crystalloid volume administer 10 11/23/24 08:38 [email or web address] (ml) Colloids volume administered ( ml) Blood Product volume administered (ml) Total IV fluid infused 10 11/23/24 08:38 [email or web address] Anesthesia Postop Eval I: Summary Notes Anesthesia Complication No 11/23/24 08:38 [email or web address] Anesthesia Complication Comment: Post-operative progress note Anesthesia: Postop Eval II Evaluation Mental status: Awake Pain Level: 0 nausea: No Vomiting: No
== END 2024-11-23 09:10 | disposition home or self-care (01) ==
LOC: EN 06:50 → AC 06:52
PROVIDERS: Anesthesiology; PCP Nurse Practitioner Family; Referring Provider Nurse Practitioner Family; Visit Provider Surgery
PROC: 0DJD8ZZ Inspection of Lower Intestinal Tract, Via Natural or Artificial Opening Endoscopic (ICD-10-PCS; CPT 45378; principal; 2024-11-23 07:55)
DX: Z12.11 Encounter for screening for malignant neoplasm of colon (principal); D64.9 Anemia, unspecified; K21.9 Gastro-esophageal reflux disease without esophagitis; Z87.891 Personal history of nicotine dependence
CPT/HCPCS: 45378; 81025; A4216; J2405

== ENCOUNTER → 2024-12-22 | Outpatient (CLI) | payer OTHER, SELFPAY ==
--- NOTE | 2024-12-22 12:45 | MRI_ITS ---
PROCEDURE: BREAST BILATERAL W/O AND W 12/22/2024 REASON FOR EXAM: BREAST DENSITY AND FAMILY HISTORY OF BREAST CANCER 49-year-old female presents for high-risk screening MRI, due to dense breast tissue and strong family history of breast cancer. Family history of breast cancer in her paternal grandmother and maternal grandmother, as well as a paternal aunt and maternal aunt. TECHNIQUE: Bilateral breast MRI using a dedicated bilateral breast coil before and following intravenous contrast. Images reviewed with subtraction and DynaCAD. CONTRAST: 10 cc of IV Clariscan COMPARISON: Mammogram 11/18/2024, 09/24/2023 and 08/14/2022 FINDINGS: Amount of Fibroglandular Tissue: Extreme fibroglandular tissue. Background Parenchymal Enhancement: Mild RIGHT Breast: No suspicious mass or non-mass enhancement. LEFT Breast: No suspicious mass or non-mass enhancement. Other Findings: No suspicious axillary or internal mammary lymph nodes. Visualized portions of the thoracic and abdominal viscera are unremarkable. MRI/Breast Bilateral W/O and W IMPRESSION: There is no MR evidence of malignancy in either breast. OVERALL BI-RADS CATEGORY: BI-RADS 1: NEGATIVE Reading Location: [id number]
== END | disposition home or self-care (01) ==
LOC: MRI 12:38
PROVIDERS: PCP Nurse Practitioner Family; Referring Provider Nurse Practitioner Women's Health; Visit Provider Nurse Practitioner Women's Health
DX: R92.30 Dense breasts, unspecified (principal); Z80.3 Family history of malignant neoplasm of breast
CPT/HCPCS: 77049; A9575; A4216; C8908

== ENCOUNTER → 2025-07-16 | Outpatient (CLI) | payer OTHER, SELFPAY ==
--- NOTE | 2025-07-16 16:26 | US_ITS ---
PROCEDURE: US/Ext Non Vasc Limited/Soft Tiss
== END | disposition home or self-care (01) ==
LOC: US 16:24
PROVIDERS: PCP Nurse Practitioner Family; Referring Provider Nurse Practitioner Family; Visit Provider Nurse Practitioner Family
DX: M71.22 Synovial cyst of popliteal space [Baker], left knee (principal)
CPT/HCPCS: 76882

== ENCOUNTER 2025-08-30 16:58 | Outpatient (RCR) | payer OTHER, SELFPAY ==
--- NOTE | 2025-10-11 10:45 | HP.PT.NRP ---
Patient Information Patient Information: LIDIA AGGARWAL was seen in my office for initial evaluation on 08/30/25. The following Plan of Care was established for this patient: POC Established Initial Frequency: 1x/Week Initial Duration: 1 Week Anticipated Interventions Patient/Client Instruction: Educate patient on: Condition and Plan of Care For the Purpose of:: To improve self management Therapeutic Exercise to Include: Body mechanics, Postural training, Dynamic Lumbar Stabilization and Mynor Exercises For the Purpose of:: To decrease pain, To improve muscle performance and motor function and To increase tolerance to activity/condition/position Last Seen Last Seen: This patient was last seen in our office . Pertinent comments regarding their Physical therapy will appear below: Pt has not returned in greater than 30 days and is discontinued at this time. At this point I will be discontinuing this patient from physical therapy. I would be happy to see this patient again in the future if found appropriate by the physician. Thank you! Dez Zayas, PT, ATC Balance/Gait/Functional tests Balance/Special Test Scores Lower Extremity Functional Score: 64
== END 2025-08-30 19:00 | disposition home or self-care (01) ==
LOC: PT 16:58
PROVIDERS: PCP Nurse Practitioner Family; Referring Provider Student in an Organized Health Care Education/Training Program; Visit Provider Student in an Organized Health Care Education/Training Program
DX: S76.312D Strain of muscle, fascia and tendon of the posterior muscle group at thigh level, left thigh, subsequent encounter (principal); M25.562 Pain in left knee; R03.0 Elevated blood-pressure reading, without diagnosis of hypertension; R63.8 Other symptoms and signs concerning food and fluid intake; Z68.1 Body mass index [BMI] 19.9 or less, adult
CPT/HCPCS: 97161